=== PATIENT | male | born 1990 | race Caucasian/White ===

== ENCOUNTER 2019-02-07 15:03 | Emergency (ER) | payer SELFPAY ==
[2019-02-07 15:49] LABS: BASOPHILS % (AUTO) 1 % (0-3); EOSINOPHILS % (AUTO) 3 % (0-9); HEMATOCRIT 45 % (39-53); HEMOGLOBIN 14.8 gm/dl (13.5-17.7); MEAN CORPUSCULAR HEMOGLOBIN 27.7 pg (27.0-32.0); MEAN CORPUSCULAR HGB CONC 32.8 gm/dl (32.0-36.0); MEAN CORPUSCULAR VOLUME 84 fL (80-100); MONOCYTES % (AUTO) 9.7 % (0-12)
[2019-02-07 16:05] LABS: BILIRUBIN,TOTAL 1.1 mg/dl (0.2-1.0); CALCIUM 8.6 mg/dl (8.5-10.1); CARBON DIOXIDE 24.7 mEq/L (21-32); CREATININE 0.96 mg/dl (0.80-1.30); MAGNESIUM 1.9 mg/dl (1.8-2.4); POTASSIUM 4.1 mMol/L (3.5-5.1); TOTAL PROTEIN 7.4 gm/dl (6.4-8.2)
[2019-02-07 16:08] LABS: ALCOHOL 0.003 gm/dl (0.000-0.08)
[2019-02-07 16:29] VITALS: TEMP 97.4
[2019-02-07] MEDS ORDERED: SODIUM CHLORIDE 0.9% 1000ML 1,000 ML IV ONE (18:07)
[2019-02-07 18:41] LABS: AMPHETAMINES POSITIVE (NEGATIVE); BARBITUATES NEGATIVE (NEGATIVE); BENZODIAZEPINES NEGATIVE (NEGATIVE); CANNABINOL(THC) POSITIVE (NEGATIVE); COCAINE(COC) NEGATIVE (NEGATIVE); METHADONE NEGATIVE (NEGATIVE); METHAMPHETAMINES POSITIVE (NEGATIVE); OPIATES(OPI) NEGATIVE (NEGATIVE); OXYCODONE(OXY) NEGATIVE (NEGATIVE); PROPOXYPHENE(PPX) NEGATIVE (NEGATIVE); TRICYCLIC ANTIDEPRESSANTS NEGATIVE (NEGATIVE)
[2019-02-07 18:46] LABS: APPEARANCE,URINE Clear; BILIRUBIN,URINE NEGATIVE (NEGATIVE); COLOR,URINE Yellow; GLUCOSE, URINE (UA) NEGATIVE (NEGATIVE); KETONES,URINE TRACE (NEGATIVE); LEUKOCYTE ESTERASE ,URINE NEGATIVE (NEGATIVE); NITRATE,URINE NEGATIVE (NEGATIVE); OCCULT BLOOD,URINE NEGATIVE (NEG-TRACE); PH,URINE 5.5; UROBILINOGEN,URINE 0.2 (0.2-1.0 EU)
[2019-02-07 19:03] LABS: BACTERIA TRACE (< 1+); CRYSTALS NEGATIVE (0-3 AVE/HPF); EPITHELIAL CELLS 0-1 (SQUAMOUS); RBC,URINE NEGATIVE (0-3AV/HPF); WBC,URINE NEGATIVE (0-5AV/HPF)
[2019-02-07 19:42] VITALS: RESP 20
[2019-02-07 21:02] VITALS: BP 140/94; PULSE 84; O2SAT 95
== END 2019-02-07 20:47 | disposition short-term general hospital (02) | DRG 897 ==
LOC: ED 15:03
DX: F11.10 Opioid abuse, uncomplicated (principal); F10.10 Alcohol abuse, uncomplicated; F19.10 Other psychoactive substance abuse, uncomplicated; S66.812A Strain of other specified muscles, fascia and tendons at wrist and hand level, left hand, initial encounter; K08.89 Other specified disorders of teeth and supporting structures
CPT/HCPCS: 36415; 73140; 80053; 80305; 80307; 81001; 83735; 85025; 99284